=== PATIENT | male | born 1995 | race African-American/Black ===

== ENCOUNTER → 2020-10-06 11:12 | Outpatient (BNVA) | payer OTHER, SELFPAY | PROVIDERS: Visit Provider Physician Assistant Medical | DX: S61.210A Laceration without foreign body of right index finger without damage to nail, initial encounter (principal); W31.89XA Contact with other specified machinery, initial encounter | CPT/HCPCS: 12031; 99203 ==

== ENCOUNTER → 2020-10-07 12:33 | Outpatient (BNVA) | payer OTHER, SELFPAY | PROVIDERS: Visit Provider Physician Assistant Medical | DX: S61.210A Laceration without foreign body of right index finger without damage to nail, initial encounter (principal); W31.89XA Contact with other specified machinery, initial encounter | CPT/HCPCS: 90714; 90715; 99213 ==

== ENCOUNTER → 2020-10-10 15:04 | Outpatient (BNVA) | payer OTHER, SELFPAY | PROVIDERS: Visit Provider Physician Assistant | DX: S61.210A Laceration without foreign body of right index finger without damage to nail, initial encounter (principal); W31.89XA Contact with other specified machinery, initial encounter | CPT/HCPCS: 99213 ==

== ENCOUNTER → 2020-10-13 15:05 | Outpatient (BNVA) | payer OTHER, SELFPAY | PROVIDERS: Visit Provider Physician Assistant Medical | DX: S61.210A Laceration without foreign body of right index finger without damage to nail, initial encounter (principal); X58.XXXA Exposure to other specified factors, initial encounter | CPT/HCPCS: 99212; 99213 ==

== ENCOUNTER 2021-03-04 10:36 | Emergency (ER) | payer MEDICAID, SELFPAY ==
--- NOTE | ~2021-03-04 | XR_ITS ---
EXAMINATION: XR FOREARM, RIGHT CLINICAL INFORMATION: Injury COMPARISON: None TECHNIQUE: AP and lateral views of the right forearm were obtained. FINDINGS: There is mildly displaced fracture of the diaphysis of the ulna at the junction of the proximal two third and distal third. The radius is intact. No dislocation. XR/XR forearm RT 2V IMPRESSION: Mildly displaced ulnar diaphyseal fracture.
[2021-03-04 10:44] VITALS: BP 112/69; PULSE 79; RESP 18; TEMP 37.2; O2SAT 99; BMI 25.1
--- NOTE | 2021-03-04 11:01 | ED.EXTPRO ---
HPI - Extremity Problem General Chief complaint: Extremity Injury, Upper Stated complaint: R ARM PAIN Time Seen by Provider: 03/04/21 11:01 History of Present Illness HPI Narrative: Patient complains of pain and swelling to right forearm after injuring it yesterday, no numbness no weakness no tingling no other injury Related Data Previous Rx's Medication Instructions Recorded ibuprofen 600 mg PO Q6H PRN #20 tab 03/04/21 oxycodone 10 mg PO Q4-6H PRN #40 tab 03/09/21 Allergies Allergy/AdvReac Type Severity Reaction Status Date / Time amoxicillin [AMOXICILLIN] Allergy Unknown DIARRHEA/VOMITING, Verified 03/07/21 13:47 stomach upset Review of Systems Review of Systems: Positive for right forearm pain negatives are no fever no chills no numbness no weakness no tingling no laceration no neck pain no headache Yes all other systems are reviewed and are negative [facility] Past Medical History Source: nursing notes reviewed Medical History Asthma Social History Social History Alcohol intake: current Smoking Status: Never smoker Use of substances other than those prescribed or required for medical reasons: Yes Advance Directives: No Advance Directives Information Provided: Yes Recently lost weight without trying: No Current occupational status: unemployed Physical Exam Vital Signs: Vital Signs: Last Vital Signs Temp 98.9 F 03/04/21 10:44 Pulse 79 03/04/21 10:44 Resp 18 03/04/21 10:44 BP 112/69 03/04/21 10:44 Pulse Ox 99 03/04/21 10:44 Body Mass Index 25.1 General appearance is no acute distress comfortable relaxed and cooperative The head is normocephalic atraumatic Neck is supple Respiratory no distress Extremities the right forearm is tender and swollen along the ulnar aspect mid to distal, the wrist has a full range of motion and is not swollen the hand is normal and neurovascular is intact Elbow has full range of motion as well and there is no tenderness in the elbow Skin no lacerations no rashes Course Course Course Narrative: X-ray showed a mildly displaced fracture of the diaphysis of the ulna Text was sent to orthopedic physician assistant professor of nursing who said they could follow the patient in the office and patient was splinted and discharged, comfortable and ambulating easily Discharge Plan Discharge Clinical Impression: Closed fracture of right forearm Patient Disposition: Home, Self-Care Additional Instructions: Follow with orthopedist next week Return to ER any time for any worse condition or any concerns If needed you could add 2 extra-strength Tylenol 3 times a day available [id number] for pain Prescriptions: New ibuprofen 600 mg tablet 600 mg PO Q6H PRN (Reason: pain) Qty: 20 RF: 0 No Action oxycodone 10 mg tablet 10 mg PO Q4-6H PRN (Reason: pain) Qty: 40 RF: 0 Referrals: Jocelyn Dodson MD [Physician] - 2 days (Right arm ulna fracture) Interventions: ED Discharge Assessment Last Done: 03/04/21 12:50 Discharge Date/Time: 03/04/21 12:50
== END 2021-03-04 12:50 | disposition home or self-care (01) ==
PROVIDERS: Emergency Provider Emergency Medicine
DX: S52.201A Unspecified fracture of shaft of right ulna, initial encounter for closed fracture (principal); W22.03XA Walked into furniture, initial encounter; Y93.9 Activity, unspecified; Y92.019 Unspecified place in single-family (private) house as the place of occurrence of the external cause; Y99.9 Unspecified external cause status
CPT/HCPCS: 29125; 73090; 99283

== ENCOUNTER → 2021-03-07 13:31 | Outpatient (BNVA) | payer MEDICAID, SELFPAY | PROVIDERS: Visit Provider Physician Assistant | DX: S52.209A Unspecified fracture of shaft of unspecified ulna, initial encounter for closed fracture (principal) | CPT/HCPCS: 99202 ==

== ENCOUNTER 2021-03-09 10:19 | Day surgery (SDC) | payer MEDICAID, SELFPAY ==
--- NOTE | 2021-03-08 11:09 | P.CONAN_ITS ---
Documented by User: Georgie Chandney 03/08/21 11:09 HPI - Anesthesia Eval Consult details Narrative: 25yo M for Right Ulna Fracture ORIF [facility] Active Problems Active Problems: All Active Problems (Updated 03/07/21 @ 15:13 by Tena Kraft PA-C) Ulnar shaft fracture (Acute) Past Medical History Medical History Asthma Social History Social History Alcohol intake: current Smoking Status: Never smoker Use of substances other than those prescribed or required for medical reasons: Yes Advance Directives: No Advance Directives Information Provided: Yes Recently lost weight without trying: No Current occupational status: unemployed Meds Allergies Allergy/AdvReac Type Severity Reaction Status Date / Time amoxicillin [AMOXICILLIN] Allergy Unknown DIARRHEA/VOMITING, Verified 03/07/21 13:47 stomach upset Exam Exam Date and Time: March 08, 2021 110 Assessment and Plan Assessment Anesthesia Assessment: Chart Reviewed Documented by User: Jorge Cook MD 03/09/21 13:17 [facility] Past Medical History Medical History Asthma Social History Social History Alcohol intake: current Smoking Status: Never smoker Use of substances other than those prescribed or required for medical reasons: Yes Advance Directives: No Advance Directives Information Provided: Yes Recently lost weight without trying: No Current occupational status: unemployed Meds Allergies Allergy/AdvReac Type Severity Reaction Status Date / Time amoxicillin [AMOXICILLIN] Allergy Unknown DIARRHEA/VOMITING, Verified 03/07/21 13:47 stomach upset Exam Airway Mallampati Class: II TM Dist: >3cm Neck ROM: Full Loose/Missing/Broken Teeth: No Heart: RR Lungs: NL Assessment and Plan Assessment Anesthesia Assessment: Anesthesia Plan Discussed and Chart Reviewed Final Anesthetic Review NPO: Yes ASA Class: I Final Preanesthetic Review: No Changes in Pt Med Stat, Meds/Allgs Chart Reviewed, Consent Obtained/Reviewed and Anes Risks/Benef Reviewed Patient Risk: Low Procedure Risk: Low Anesthetic Plan Anesthetic Plan: GA and Regional Block Disposition: Standard PACU
[2021-03-09] VITALS (8 sets, daily range): BP systolic 98–126; BP diastolic 46–78; PULSE 58–75; RESP 15–18; TEMP 36.2–36.8; O2SAT 94–96; BMI 25.8
--- NOTE | ~2021-03-09 | FL_ITS ---
EXAMINATION: XR FLUOROSCOPY WITH IMAGES CLINICAL INFORMATION: Fracture right ulna COMPARISON: Right forearm 03/04/2021 TECHNIQUE: Fluoroscopy performed by Dr. West Banks. Fluoroscopy time: 22 seconds. DAP: [id number] mGycm2 Images: 2 FINDINGS: Distal ulnar transverse fracture has been stabilized with dorsal metallic plate and screws with a fracture fragment in alignment. FL/FL guidance in OR IMPRESSION: Stabilized distal ulnar fracture with dorsal metallic plate and screws with fracture fragment alignment.
--- NOTE | 2021-03-09 07:23 | MHC.SHP ---
Pre-Procedural Eval Section A The patient is an INPATIENT: No Changes since office visit: No Cold of Flu in the past 2 weeks, No New Medical Problems, No Changes in Medication and No Patient answered all questions The History & Physical has been completed within 30 days and I have reviewed it.: Yes Section B Chief Complaint: fx of shaft of ulna Allergies: Allergies Allergy/AdvReac Type Severity Reaction Status Date / Time amoxicillin [AMOXICILLIN] Allergy Unknown DIARRHEA/VOMITING, Verified 03/07/21 13:47 stomach upset Plan I have reviewed the history and physical and performed a pertinent physical examination on my patient. No changes have occurred unless specified.
[2021-03-09] MEDS: Lactated Ringers 1,000 ML 100 ML IVCONT (11:02)
--- NOTE | 2021-03-09 14:35 | P.OP_ITS ---
Operative Note Operative Note Date of Service: 03/09/21 Narrative: OPERATIVE PROCEDURE NOTE SURGEON: Dr. Banks (Diana) Instrum SCREEDMAN/LABORER: Tena Kraft PAC PREOP DIAGNOSIS: Nightstick fracture right ulna POSTOP DIAGNOSIS: Same OPERATIVE PROCEDURE: Open reduction and internal fixation fractured right ulna CLINICAL NOTE: This young man struck his arm and injured his right forearm as noted above. After explaining the risks benefits and alternatives and answering all his questions it was mutually agreed upon to carry out the following procedure OPERATIVE PROCEDURE Under regional block and general anesthetic the patient was placed supine on the operating table the right arm had a pneumatic tourniquet cuff placed her on the upper right arm and inflated to 200 mm of mercury it beginning case. The right arm was prepped and draped in standard fashion placed on the armboard. Surgical time-out was then performed patient was identified. Procedure confirmed. Site confirmed. Medical and allergy history reviewed. Preoperative antibiotics were given. Standard DVT prophylaxis in place. All other items were discussed and agreed upon. Standard approach to along the subcutaneous border of the ulna was carried out. This was taken down through the subcutaneous tissues. Hemostasis she has along the way using electrocautery. The edge was identified on the ulna and subperiosteal dissection was performed both proximally and distally. The fracture was identified. It was irrigated. He was anatomically reduced. A 6 hole compression plate was placed on the volar surface. It was held in place. Following this the most proximal hole in the distal segment was drilled measured and a nonlocking screw inserted. Then the most distal hole in the proximal fragment was drilled in compression mode and the fracture was compressed with this screw. Following this the remaining 2 screw screws proximally at the 2 screws distally were drilled measured and the appropriate length nonlocking screws inserted in all the except for the most distal 1 were locking screw was placed. Following this imaging was taken in the AP and lateral plane showed the fracture to be reduced anatomically and all the hardware in the appropriate place and therefore proceeded to closure. Wound was thoroughly irrigated. The deep tissue loosely approximated using interrupted Dexon. The skin approximated using interrupted 2-0 Dexon. Lilian were then applied. Sterile dressing then applied. Arm was placed in an above arm posterior splint. The tourniquet had been let down a total tourniquet time of 23 minutes. The patient then had there anesthesia reversed. They were transferred supine to the room bed then taken to the recovery room in good condition. Intraoperatively there was approximately 25 cc of blood loss. No complications.
== END 2021-03-09 15:00 | disposition home or self-care (01) ==
PROVIDERS: Visit Provider Orthopaedic Surgery
PROC: (CPT 25545; principal; 2021-03-09 12:20)
DX: S52.201A Unspecified fracture of shaft of right ulna, initial encounter for closed fracture (principal); W22.8XXA Striking against or struck by other objects, initial encounter; Y93.9 Activity, unspecified; Y92.9 Unspecified place or not applicable; Y99.9 Unspecified external cause status
CPT/HCPCS: 25545; C1713; J0690; J1100; J2250

== ENCOUNTER 2021-03-24 09:00 | Outpatient (REF) | payer OTHER, SELFPAY ==
--- NOTE | ~2021-03-24 | XR_ITS ---
EXAMINATION: XR FOREARM, RIGHT CLINICAL INFORMATION: Pain right wrist COMPARISON: Right forearm 03/24/2021. TECHNIQUE: AP and lateral views of the right forearm were obtained. FINDINGS: There is a distal ulnar metadiaphyseal fracture stabilized with lateral plate and screws. The fracture fragments are in alignment. No additional new body seen. The surgical peter seen previously have been removed XR/XR forearm RT 2V IMPRESSION: Stable alignment distal ulnar metadiaphyseal fracture following placement of metallic plate and screws.
--- NOTE | ~2021-03-24 | XR_ITS ---
EXAMINATION: XR FOREARM, RIGHT CLINICAL INFORMATION: Distal ulnar fracture, status post ORIF. COMPARISON: None TECHNIQUE: AP and lateral views of the right forearm were obtained. FINDINGS: The patient is status post ORIF of the distal one third of the ulna transfixing the previously seen transverse fracture. There is good anatomic alignment with no evidence for hardware malfunction. The radius is intact. The soft tissues are unremarkable. XR/XR forearm RT 2V IMPRESSION: Status post distal ulnar ORIF showing good anatomic alignment without hardware abnormality.
== END 2021-03-24 09:01 | disposition home or self-care (01) ==
LOC: HO.HOSX 09:00
PROVIDERS: Visit Provider Physician Assistant
DX: S52.201A Unspecified fracture of shaft of right ulna, initial encounter for closed fracture (principal)
CPT/HCPCS: 73090; 99212

== ENCOUNTER → 2021-03-31 11:04 | Outpatient (BNVA) | payer OTHER, SELFPAY | PROVIDERS: Visit Provider Orthopaedic Surgery | DX: S52.209D Unspecified fracture of shaft of unspecified ulna, subsequent encounter for closed fracture with routine healing (principal) | CPT/HCPCS: 99212 ==

== ENCOUNTER → 2021-04-07 15:48 | Outpatient (BNVA) | payer OTHER, SELFPAY | PROVIDERS: Visit Provider Physician Assistant | DX: S52.221D Displaced transverse fracture of shaft of right ulna, subsequent encounter for closed fracture with routine healing (principal) | CPT/HCPCS: 99212 ==

== ENCOUNTER → 2021-04-11 09:02 | Outpatient (BNVA) | payer OTHER, SELFPAY | PROVIDERS: Visit Provider Orthopaedic Surgery | DX: Z48.89 Encounter for other specified surgical aftercare (principal) | CPT/HCPCS: 99212 ==

== ENCOUNTER → 2021-05-02 08:33 | Outpatient (BNVA) | payer OTHER, SELFPAY | PROVIDERS: Visit Provider Orthopaedic Surgery | DX: Z48.89 Encounter for other specified surgical aftercare (principal) | CPT/HCPCS: 73090; 99212 ==

== ENCOUNTER 2021-06-13 08:32 | Outpatient (REF) | payer OTHER, SELFPAY ==
--- NOTE | ~2021-06-13 | XR_ITS ---
EXAMINATION: XR FOREARM, RIGHT CLINICAL INFORMATION: Fracture. COMPARISON: Previous x-ray most recent 05/02/2020 TECHNIQUE: AP and lateral views of the right forearm were obtained. FINDINGS: There is a plate and screws in the right distal ulnar shaft. Orthopedic hardware appears unchanged. There is a transverse nondisplaced fracture of the distal ulnar shaft. Fracture line appears slightly more indistinct and there is increased bony callus formation suggestive of evidence of healing.. No other fracture is seen. Soft tissues are normal. XR/XR forearm RT 2V IMPRESSION: ORIF of left distal ulnar shaft fracture.
== END 2021-06-13 08:33 | disposition home or self-care (01) ==
LOC: HO.HOSX 08:32
PROVIDERS: Visit Provider Orthopaedic Surgery
DX: S52.221D Displaced transverse fracture of shaft of right ulna, subsequent encounter for closed fracture with routine healing (principal)
CPT/HCPCS: 73090; 99212

== ENCOUNTER 2021-10-23 14:47 | Emergency (ER) | payer OTHER, SELFPAY ==
[2021-10-23 17:16] VITALS: PULSE 69; RESP 16; TEMP 36.7; O2SAT 100; BMI 25.2
--- NOTE | 2021-10-23 17:44 | ED.EXTPRO ---
HPI - Extremity Problem General Chief complaint: Extremity Injury, Upper Stated complaint: r arm inj Source: patient Mode of arrival: ambulatory Limitations: no limitations History of Present Illness HPI Narrative: 25-year-old male presents to the ED requesting work note to return to work today. Patient states for the past 4-5 days he has been over exerting his right upper extremity specially forearm/wrist. Patient states working his primary job and 2 other jobs for 5 days in a row that require Azra use of her right upper extremity specially forearm. 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 Patient states lifting heavy objects causes some mild discomfort pain in right forearm/wrist with tingling. Patient denies any redness, swelling, fever, chills, any blunt trauma to right forearm/upper extremity. Patient states tingling the most at middlel wrist volar aspect. Presently patient is asymptomatic and would like to just receive work note to go back to work. Related Data Previous Rx's Medication Instructions Recorded ibuprofen 600 mg tablet 600 mg PO Q6H PRN #20 tab 03/04/21 oxycodone 10 mg tablet 10 mg PO Q4-6H PRN #40 tab 03/09/21 naproxen 500 mg tablet 500 mg PO BID PRN 10 Days #20 tab 10/23/21 Allergies Allergy/AdvReac Type Severity Reaction Status Date / Time amoxicillin [AMOXICILLIN] Allergy Unknown DIARRHEA/VOMITING, Verified 06/13/21 08:47 stomach upset Review of Systems Review of Systems: Yes all other systems are reviewed and are negative Constitutional: Constitutional: Reports as per HPI and Reports no additional constitutional complaints Eyes: Eyes: Reports as per HPI and Reports no additional eye complaints ENT: Reports system reviewed and no additional complaints, except as documented and Reports as per HPI Cardiovascular: Cardiovascular: Reports as per HPI and Reports no additional cardiovascular complaints Respiratory: Respiratory: Reports as per HPI and Reports no additional respiratory complaints Gastrointestinal: Gastrointestinal: Reports as per HPI and Reports no additional gastrointestinal complaints Genitourinary: Genitourinary: Reports no additional male genitourinary complaints and Reports as per HPI Musculoskeletal: Musculoskeletal: Reports no additional musculoskeletal complaints, Reports as per HPI and Reports arthralgias (right forearm/wrist pain) Comments: right forearm/wrist pain Neurologic: Reports system reviewed and no additional complaints, except as documented and Reports as per HPI Psychiatric: Psychiatric: Reports no additional psychiatric complaints and Reports as per HPI [facility] Past Medical History Medical History Asthma Social History Social History Alcohol intake: current Patient Tobacco Use Status: Tobacco use Unknown Advance Directives: No Advance Directives Information Provided: Yes Current occupational status: unemployed Physical Exam Vital Signs: Vital Signs: Last Vital Signs Temp 98.0 F 10/23/21 17:16 Pulse 69 10/23/21 17:16 Resp 16 10/23/21 17:16 Pulse Ox 100 10/23/21 17:16 Body Mass Index 25.2 Const: General: cooperative, healthy appearing, comfortable, no acute distress, well developed, alert and awake Orientation/consciousness: patient oriented x3 HENMT: Head: Yes normal to inspection, Yes No palpable skull fracture present, Yes normocephalic, Yes atraumatic and No abrasion Eyes: General: appearance normal, both eyes and all related structures Neck: Neck: Yes normal visual inspection, Yes full ROM, Yes no lymphadenopathy, Yes no meningeal signs, Yes trachea midline, Yes supple, No anterior neck swelling and No tender Chest: Chest palpation & inspection: normal inspection of the chest and normal palpation of entire chest wall Resp: Effort & Inspection: normal respiratory effort and able to speak in complete sentences Auscultation: clear to auscultation bilaterally Cardio: Jugular venous distension: no JVD Heart sounds: S1 normal heart sound present and S2 normal heart sound present GI: Inspection: Yes normal to inspection and No abdominal wall ecchymosis Palpation (GI): Soft to palpation, not firm, nontender, no guarding and not rigid : General: No CVA tenderness and Yes no CVA tenderness Back/Spine/Pelvis: Back: no CVA tenderness, No CVA tenderness and No back tenderness Skin: General skin exam: no rashes or lesions noted and elasticity normal Neuro: Other: Negative facial droop. Negative slurred speech. Negative pronator drift. All extremities equal strength 5+. [id number] and rapid hand movement intact. Negative Romberg. General: patient oriented x3, gait normal, no meningeal signs and CN's II-XI intact bilaterally Cranial nerves: Yes CN's II-XII intact bilaterally Extrem: General: Yes normal to inspection and Yes full ROM Elbow/forearm/wrist images: 1. Right upper extremity negative for any swelling, ecchymosis, deformity, pus discharge, foul order, hardness, crepitus, coolness, or bluish black discoloration. Motor/neuro/vascular exam intact. Psych: Appearance: grossly normal, well kempt and not disheveled Course Course Course Narrative: Patient just wants to be discharged does not want any intervention. Reevaluation(s) Reevaluation #1: History physical exam does not indicate cellulitis, arterial occlusion, or DVT. Very unlikely patient has a fracture but due to patient stating he has metal rods in his arm recommend x-ray to make sure there is no displacement of rods but patient refused imaging. Not suspecting any wrist drop or nerve damage. Patient has complete range of motion of right upper extremity. was informed of overuse and doing CPK make sure there is no rhabdomylosis which can cause renal failure/ but patient not want to do any blood work like to be discharged. Physical presentation very unlikely rhabdomyolysis. Diagnosis is forearm/wrist sprain versus Carpal Tunnel Syndrome. Patient informed he will need rest and not going to work to rest upper extremity but patient adamantly wants go back to work. Time: 18:01 MDM - Extremity (Nontraumatic) MDM Narrative Medical decision making narrative: Wrist sprain Discharge Plan Discharge Clinical Impression: Sprain of wrist, right, Carpal tunnel syndrome Patient Disposition: Home, Self-Care Instructions: How to Use an Elastic Bandage (ED), Paresthesia (ED), Wrist Sprain (ED) Additional Instructions: Return to the ED immediately for pain, paralysis/inability to move extremity, swelling, redness, bluish black discoloration fingers, pus discharge, foul odor, fever, chills, inability to move fingers, weakness, dizziness, chest pain, worsening tingling, severe numbness, shortness of breath, or any other concerning symptoms. Prescriptions: New naproxen 500 mg tablet 500 mg PO BID PRN (Reason: pain) 10 Days Qty: 20 RF: 0 No Action ibuprofen 600 mg tablet 600 mg PO Q6H PRN (Reason: pain) Qty: 20 RF: 0 oxycodone 10 mg tablet 10 mg PO Q4-6H PRN (Reason: pain) Qty: 40 RF: 0 Referrals: Latrell Cartwright MD [Physician] - 2 days (Tingling in right wrist/forearm with mild discomfort due to lifting of heavy objects. Past medical history of right forearm fracture with metal rods placed. ) Stand Alone Forms: Work/School Release Interventions: ED Discharge Assessment Last Done: 10/23/21 18:18 Discharge Date/Time: 10/23/21 18:19 Print Language: Luxembourger
== END 2021-10-23 18:19 | disposition home or self-care (01) ==
PROVIDERS: Emergency Provider Internal Medicine; PCP Nurse Practitioner Family
DX: Z02.79 Encounter for issue of other medical certificate (principal); S63.501A Unspecified sprain of right wrist, initial encounter; X50.0XXA Overexertion from strenuous movement or load, initial encounter; G56.01 Carpal tunnel syndrome, right upper limb; Y93.89 Activity, other specified; Y92.89 Other specified places as the place of occurrence of the external cause; Y99.0 Civilian activity done for income or pay
CPT/HCPCS: 99283

== ENCOUNTER 2021-11-02 13:19 | Outpatient (REF) | payer OTHER, SELFPAY | END 2021-11-02 13:20 | disposition home or self-care (01) | LOC: HO.LAB 13:19 | PROVIDERS: Visit Provider Internal Medicine | DX: Z20.822 Contact with and (suspected) exposure to COVID-19 (principal) | CPT/HCPCS: C9803; U0003; U0005 ==

== ENCOUNTER 2023-02-14 14:00 | Outpatient (REF) | payer OTHER, SELFPAY ==
[2023-02-14 14:42] LABS: COVID-19 Test Negative (Negative); IDNOW Serial# 08D9AD1C
== END 2023-02-14 14:01 | disposition home or self-care (01) ==
LOC: HO.LAB 14:00
PROVIDERS: Visit Provider Internal Medicine
DX: Z20.822 Contact with and (suspected) exposure to COVID-19 (principal)
CPT/HCPCS: 87635; C9803

== ENCOUNTER 2024-01-04 10:56 | Emergency (ER) | payer OTHER, SELFPAY ==
[2024-01-04 11:12] VITALS: BP 108/46; PULSE 59; RESP 16; TEMP 36.9; O2SAT 96; BMI 23.7
--- NOTE | 2024-01-04 11:12 | ED_ITS ---
HPI - General Adult General Chief complaint: Wound/Laceration Stated complaint: l thumb laceration work related Time Seen by Provider: 01/04/24 11:20 Source: patient, RN notes reviewed and old records reviewed Mode of arrival: ambulatory History of Present Illness HPI narrative: 28-year-old male with no significant past medical history presenting to the ED complaining of laceration to left thumb s/p using rotating blade at work 1 hour [employer]. Last tetanus unknown but patient suspects he is up to date. Denies injury to other area, crush wound. Reports associated paresthesias Onset (ago): hour(s) Related Data Previous Rx's Medication Instructions Recorded ibuprofen 600 mg tablet 600 mg PO Q6H PRN pain #20 tabs 03/04/21 oxycodone 10 mg tablet 10 mg PO Q4-6H PRN pain #40 tabs 03/09/21 naproxen 500 mg tablet 500 mg PO BID PRN pain 10 days #20 10/23/21 tabs Allergies Allergy/AdvReac Type Severity Reaction Status Date / Time amoxicillin [AMOXICILLIN] Allergy Unknown DIARRHEA/VOMITING, Verified 01/04/24 11:15 stomach upset Review of Systems Review of Systems: Constitutional: No Fever, No Chills ENT/Mouth: No Ear Pain, No Nasal Congestion, No sore throat, No Rhinorrhea, No Swallowing Difficulty Cardiovascular: No Chest Pain, No SOB Respiratory: No Cough Gastrointestinal: No Nausea, No Vomiting, No Abdominal pain Musculoskeletal: No joint pain, No Myalgias, No Joint Swelling Skin: +Skin Lesions, No rash Neuro: No Weakness, No Numbness,+Paresthesias Yes all other systems are reviewed and are negative Constitutional: Constitutional: Reports as per [facility] Past Medical History Attestation statement: The following information was validated with the patient. Source: old records reviewed Medical History Asthma Social History Social History Alcohol intake: current Patient Tobacco Use Status: Tobacco use Unknown Advance Directives: No Advance Directives Information Provided: No Current occupational status: unemployed Physical Exam ED Vital Signs: Vital Signs - 24 hr 01/04/24 11:12 Temperature 98.4 F Pulse Rate 59 Respiratory Rate 16 Blood Pressure 108/46 L Pulse Oximetry 96 Oxygen Delivery Method Room Air BMI result Body Mass Index 23.7 Const General: cooperative, healthy appearing and no acute distress Orientation/consciousness: patient oriented x3 Limitations: no limitations HENMT Head: Yes normal to inspection and Yes atraumatic Ears: hearing grossly normal bilaterally General nose exam: Normal external nose present Face and sinus: Yes normal facial exam Eyes General: appearance normal, both eyes and all related structures EOM: EOMs intact bilaterally Neck Neck: Yes normal visual inspection and Yes no meningeal signs Resp Effort & Inspection: normal respiratory effort and no respiratory distress Cardio Rate: regular rate Skin Other: + 2 cm linear laceration noted to left 1st digit palmar aspect distal to PIP. Active bleeding appreciated. Sensation intact to light touch. Full range of motion intact Rashes: no rashes Neuro General: patient oriented x3, tone normal and no meningeal signs Cranial nerves: Yes CN's II-XII intact bilaterally Gait exam (Neuro): Normal gait present Extrem General: Yes normal to inspection Course Course Course Narrative: This is a rapid medical exam: Additional HPI, ROS, PE not included below will be deferred to primary provider. Patient is a 28-year-old right hand dominant male presenting to the ED with laceration to left thumb sustained at work. States he was using a slitter knife and accidentally cut his thumb. Unsure of last tetanus vaccine. 2cm linear laceration noted. Plan: Tdap, will need sutures -patient refused tdap > discussed techniques should verify with [facility] last tetanus Results discussed with patient including worrisome signs and symptoms and strict return precautions, and when to return to the emergency department. They verbalized understanding and feel safe for discharge at this time. Medications Administered Discontinued Medications Generic Name Dose Route Start Last Admin Trade Name Freq PRN Reason Stop Dose Admin Diphtheria/Tetanus/Acell Pertussis 0.5 ml 01/04/24 11:17 01/04/24 11:58 Diphth,Pertus(Acell),Tet Adult 0.5 Ml Syringe IM 01/04/24 11:18 Not Given .ONCE ONE Lidocaine HCl 5 ml 01/04/24 11:23 01/04/24 11:33 Lidocaine Hcl 1 % Mpf 5 Ml Vial INFILTRATI 01/04/24 11:24 5 ml ONCE ONE Administration Procedures Laceration Laceration 1: Site: hand Side (If applicable): left Size (cm): 2 Description: linear Depth: simple, single layer Local Anesthetic: lidocaine 1% Amount of anesthesia used (mL): 6 Pre-repair: wound explored and irrigated extensively Skin layer closed with: nylon Size (cm): 4-0 Number of sutures: 7 Technique: simple, interrupted Medical Decision Making Medical Decision Making MDM Narrative: 28-year-old male with no significant past medical history presenting to the ED complaining of laceration to left thumb s/p using rotating blade at work 1 hour [employer]. On exam vital signs stable, NAD, nontoxic appearing with physical exam as noted above. Laceration which will require suture repair. Will update tetanus. Low suspicion for tendon/ligamental injury or fracture Plan: Suture repair, update tetanus Please refer to course for remaining clinical decision making, interpretation of labs/imaging results, and discussions with consultants and/or family members. Differential Diagnosis Differential Diagnoses: The differential diagnosis associated with the presentation includes As above External Record Review External record reviewed: Inpatient record, Office record, Outpatient record, Prior outpatient labs, Prior outpatient radiology, Primary care record and Outside ED record Tests considered The following testing was considered but not selected: As above Prescription Management I considered prescription management with: Pain Medication and Antibiotic Discharge Plan Discharge Clinical Impression: Laceration Patient Disposition: Home, Self-Care Instructions: Finger Laceration (ED) Additional Instructions: Your wounds were repaired today in the emergency department. Keep dry and clean. You need to return to [facility], any emergency department, urgent care, or your PCPs office in 7-10 days for suture removal Apply bacitracin and or Neosporin daily Once sutures are removed apply anti scar cream like Mederma If area begins look infected, is red, there is drainage, streaking, or you have fever please return to the emergency departmen please call [facility] to verify your last tetanus* Prescriptions: No Action ibuprofen 600 mg tablet 600 mg PO Q6H PRN (Reason: pain) Qty: 20 0RF oxycodone 10 mg tablet 10 mg PO Q4-6H PRN (Reason: pain) Qty: 40 0RF naproxen 500 mg tablet 500 mg PO BID PRN (Reason: pain) 10 Days Qty: 20 0RF Referrals: [facility] [Outside] - 1 week (suture reomval)
[2024-01-04] MEDS: Lidocaine HCl 1 % MPF 5 ML VIAL INFILTRATI (11:33)
--- NOTE | 2024-01-04 11:58 | PC.NURSE ---
Patient refused states he thinks he already has been immunized.
== END 2024-01-04 12:15 | disposition home or self-care (01) ==
PROVIDERS: Emergency Provider Student in an Organized Health Care Education/Training Program
DX: S61.012A Laceration without foreign body of left thumb without damage to nail, initial encounter (principal); W31.89XA Contact with other specified machinery, initial encounter; Y93.89 Activity, other specified; Y92.59 Other trade areas as the place of occurrence of the external cause; Y99.0 Civilian activity done for income or pay
CPT/HCPCS: 12001; 99282; 99284

== ENCOUNTER → 2024-01-07 15:16 | Outpatient (BNVA) | payer OTHER, SELFPAY | PROVIDERS: Visit Provider Physician Assistant Medical | DX: S61.012A Laceration without foreign body of left thumb without damage to nail, initial encounter (principal); W31.89XA Contact with other specified machinery, initial encounter | CPT/HCPCS: 99203 ==

== ENCOUNTER → 2024-01-14 15:36 | Outpatient (BNVA) | payer OTHER, SELFPAY | PROVIDERS: Visit Provider Physician Assistant | DX: S61.012A Laceration without foreign body of left thumb without damage to nail, initial encounter (principal); W31.89XA Contact with other specified machinery, initial encounter; Z48.02 Encounter for removal of sutures | CPT/HCPCS: 99212; 99213 ==